=== PATIENT | female | born 1980 | race African-American/Black ===

== ENCOUNTER 2023-04-22 22:32 | Emergency (ER) | payer OTHER ==
[~2023-04-22] VITALS: Ht 165.1 cm; Wt 250.0 kg
[2023-04-22 22:40] VITALS: BP 143/85; PULSE 114; RESP 18; TEMP 98.4; O2SAT 97
[2023-04-22] MEDS ORDERED: ACETAMINOPHEN 325MG TABLET PO NR (23:00)
[2023-04-22] MEDS ORDERED: GABAPENTIN 100MG CAPSULE PO NR (23:00)
[2023-04-22 23:21] LABS: BASOPHILS % 0.7 % (0.0-2.0); DIFFERENTIAL COMMENT 0; EOSINOPHILS % 1.8 % (0.0-5.0); HEMATOCRIT. 43.2 % (36.0-48.0); HEMOGLOBIN. 12.1 g/dL (12.0-16.0); LYMPHOCYTES % 11.9 % (20.0-50.0); MEAN CORPUSCULAR HEMOGLOBIN 24.1 pg (28.0-32.0); MEAN CORPUSCULAR HGB CONC 28.1 g/dL (31.0-37.0); MEAN CORPUSCULAR VOLUME 85.7 fL (81.0-99.0); MEAN PLATELET VOLUME 8.9 fl (7.4-10.4); MONOCYTES % 8.9 % (2.0-8.0); NEUTROPHILS % 76.7 % (40.0-76.0); PLATELET 220 x1000/uL (130-400); RED BLOOD CELL COUNT 5.04 mill/uL (4.2-5.4); RED CELL DISTRIBUTION WIDTH 19.6 % (11.6-14.6); WHITE BLOOD COUNT 8.2 x1000/uL (4.5-11.0)
[2023-04-22 23:34] LABS: CARBON DIOXIDE 40 mEq/L (21-32); CHLORIDE 97 mEq/L (98-107); GLUCOSE 101 mg/dL (70-105); PHOSPHORUS 4.3 mg/dL (2.5-4.9); POTASSIUM 4.3 mEq/L (3.5-5.1); SODIUM 139 mEq/L (136-145); UREA NITROGEN BLOOD 13 mg/dL (9-23)
[2023-04-23] MEDS ORDERED: ACET-2708 MT (00:09)
[2023-04-23] MEDS ORDERED: GABA-529 MT (00:09)
== END 2023-04-23 00:26 | disposition home or self-care (01) ==
LOC: ER 22:32
DX: G62.9 Polyneuropathy, unspecified (principal); I11.0 Hypertensive heart disease with heart failure; I50.9 Heart failure, unspecified; E11.9 Type 2 diabetes mellitus without complications
CPT/HCPCS: 36415; 80048; 83735; 84100; 85025; 99283

== ENCOUNTER 2023-04-26 15:15 | Inpatient (IN) | payer OTHER ==
[~2023-04-26] VITALS: Ht 162.6 cm; Wt 168.3 kg
[~2023-04-26 15:15] MED LIST: ACET-2708 MT; GABA-529 MT
[2023-04-26] MEDS: IPRATROPIUM BROMIDE (0.02%) 0.5MG/2.5ML NEB HHN STA ×2 (15:24→18:48)
[2023-04-26] MEDS: ALBUTEROL (0.083%) 2.5MG/3ML NEB HHN STA (15:24)
[2023-04-26] MEDS: METHYLPREDNISOLONE SOD SUCC 125MG/2ML (ACT-O-VIAL) IV STA (15:24)
[2023-04-26 18:06] LABS: ALANINE AMINOTRANSFERASE < 7 IU/L (10-49); ALBUMIN 3.8 g/dL (3.2-4.8); ASPARTATE AMINOTRANSFERASE 17 IU/L (<34); BILIRUBIN TOTAL 0.6 mg/dL (0.1-1.0); CALCIUM 8.7 mg/dL (8.7-10.4); CARBON DIOXIDE 36 mEq/L (21-32); CHLORIDE 98 mEq/L (98-107); CREATININE 0.8 mg/dL (0.6-1.0); GLUCOSE 85 mg/dL (70-105); POTASSIUM 4.8 mEq/L (3.5-5.1); PROTEIN TOTAL 8.1 g/dL (6.0-8.3); SODIUM 139 mEq/L (136-145); TROPONIN I HIGH SENSITIVITY 13 ng/L (3.0-34); UREA NITROGEN BLOOD 10 mg/dL (9-23)
[2023-04-26 19:21] LABS: BASOPHILS % 0.6 % (0.0-2.0); DIFFERENTIAL COMMENT 0; HEMATOCRIT. 41.6 % (36.0-48.0); HEMOGLOBIN. 11.9 g/dL (12.0-16.0); LYMPHOCYTES % 8.2 % (20.0-50.0); MEAN CORPUSCULAR HEMOGLOBIN 23.9 pg (28.0-32.0); MEAN CORPUSCULAR HGB CONC 28.5 g/dL (31.0-37.0); MEAN CORPUSCULAR VOLUME 83.9 fL (81.0-99.0); MEAN PLATELET VOLUME 8.9 fl (7.4-10.4); MONOCYTES % 4.9 % (2.0-8.0); NEUTROPHILS % 84.3 % (40.0-76.0); PLATELET 225 x1000/uL (130-400); RED BLOOD CELL COUNT 4.96 mill/uL (4.2-5.4); RED CELL DISTRIBUTION WIDTH 20.4 % (11.6-14.6); WHITE BLOOD COUNT 10.3 x1000/uL (4.5-11.0)
[2023-04-26 19:33] LABS: TROPONIN I HIGH SENSITIVITY 13 ng/L (3.0-34)
[2023-04-26 19:48] LABS: INR 1.1; PROTHROMBIN TIME 11.7 sec (9.6-11.0)
[2023-04-26 22:22] LABS: BG CARBOXYHEMOGLOBIN 2.1 % (0.5-1.5); BG DEOXYHEMOGLOBIN 5.9 % (0.0-5.0); BG FRACTION INSPIRED OXYGEN 100; BG METHEMOGLOBIN 0.4 % (0.0-1.5); BG OXYGEN SATURATION 93.9 % (92.0-98.5); BG OXYHEMOGLOBIN 91.6 % (94.0-97.0); BG PCO2 141.9 mmHg (35.0-45.0); BG PH 7.109 (7.350-7.450); BG PO2 91.4 mmHg (75.0-100.0); BG SAMPLE SITE RIGHT RADIAL; BG TOTAL HEMOGLOBIN 13.8 g/dL (12.0-18.0); BG VENT MODE MASK - NRB
[2023-04-26 22:30] VITALS: RESP 29
[2023-04-26 23:50] VITALS: PULSE 104; RESP 22
[2023-04-27] VITALS (31 sets, daily range): BP systolic 118–177; BP diastolic 69–145; PULSE 78–101; RESP 14–35; TEMP 98.4–98.5
[2023-04-27] MEDS: PROPOFOL 10MG/ML 100ML 100 ML IV ONE
[2023-04-27] MEDS ORDERED: MIDAZOLAM HCL 100 MG in DEXT 5% WATER 80 ML IV ONE
[2023-04-27] MEDS: SUCCINYLCHOLINE CHLORIDE 200MG/10ML IV ONE
[2023-04-27] MEDS ORDERED: ACETAMINOPHEN 650MG/20.3ML UDC GT PRN (00:45)
[2023-04-27] MEDS ORDERED: ONDANSETRON HCL 4MG/2ML INJ IV PRN (00:45)
[2023-04-27] MEDS: MIDAZOLAM 100MG/100ML PREMIX IV PRN (01:07)
[2023-04-27 01:20] LABS: BG CARBOXYHEMOGLOBIN 1.2 % (0.5-1.5); BG FRACTION INSPIRED OXYGEN 100; BG HCO3 ACT 41.2 mmol/L (22.0-26.0); BG METHEMOGLOBIN 0.5 % (0.0-1.5); BG OXYHEMOGLOBIN 98.3 % (94.0-97.0); BG PCO2 71.6 mmHg (35.0-45.0); BG PH 7.378 (7.350-7.450); BG PO2 317.5 mmHg (75.0-100.0); BG SAMPLE SITE RIGHT RADIAL; BG TOTAL HEMOGLOBIN 12.7 g/dL (12.0-18.0); BG TOTAL RESPIRATORY RATE 22 b/min; BG VENT MODE VENT - AC
[2023-04-27 01:32] LABS: IRON 40 ug/dL (50-170); PHOSPHORUS 5.4 mg/dL (2.5-4.9); TOTAL IRON BINDING CAPACITY 316 ug/dl (250-425)
[2023-04-27] MEDS: PROPOFOL 10MG/ML 100ML 100 ML IV PRN ×2 (02:06→20:18)
[2023-04-27] MEDS: PANTOPRAZOLE SODIUM 40 MG/VIAL IV SCH (03:18)
[2023-04-27] MEDS: METHYLPREDNISOLONE SOD SUCC 40MG/ML (ACT-O-VIAL) IV SCH (03:18)
[2023-04-27 03:30] LABS: CLARITY URINE CLEAR (CLEAR); COLOR URINE YELLOW (YELLOW); GLUCOSE URINE 3+ (NEGATIVE); KETONES URINE 1+ (NEGATIVE); LEUKOCYTE ESTERASE URINE NEGATIVE (NEGATIVE); NITRITE URINE NEGATIVE (NEGATIVE); OCCULT BLOOD URINE 2+ (NEGATIVE); PROTEIN URINE 2+ (NEGATIVE); SPECIFIC GRAVITY URINE 1.023 (1.005-1.030)
[2023-04-27 04:23] LABS: BG BASE EXCESS 12.4 mmol/L (-2.0-2.0); BG CARBOXYHEMOGLOBIN 0.9 % (0.5-1.5); BG DEOXYHEMOGLOBIN 1.6 % (0.0-5.0); BG FRACTION INSPIRED OXYGEN 60; BG HCO3 ACT 35.6 mmol/L (22.0-26.0); BG METHEMOGLOBIN 0.7 % (0.0-1.5); BG OXYGEN SATURATION 98.4 % (92.0-98.5); BG OXYHEMOGLOBIN 96.8 % (94.0-97.0); BG PCO2 39.9 mmHg (35.0-45.0); BG PH 7.568 (7.350-7.450); BG PO2 93.4 mmHg (75.0-100.0); BG SAMPLE SITE LEFT RADIAL; BG TOTAL HEMOGLOBIN 12.9 g/dL (12.0-18.0); BG TOTAL RESPIRATORY RATE 26 b/min; BG VENT MODE VENT - AC
[2023-04-27 04:41] LABS: CREATINE KINASE 70 IU/L (34-145); CREATINE KINASE MB FRACTION 1.7 ng/mL (0.5-3.6); PHOSPHORUS 3.7 mg/dL (2.5-4.9); TRIGLYCERIDE 56 mg/dL (0-150); TROPONIN I HIGH SENSITIVITY 14 ng/L (3.0-34)
[2023-04-27 05:38] LABS: SQUAMOUS EPITHELIAL CELL URINE FEW /lpf (RARE/1+)
[2023-04-27 05:40] LABS: WBC URINE 0-2 /hpf (0-2)
[2023-04-27 05:41] LABS: BACTERIA URINE NONE SEEN
[2023-04-27 05:42] LABS: FINE GRANULAR CASTS URINE 0-5 /lpf
[2023-04-27] MEDS: IPRATROPIUM/ALBUTEROL 0.5-3(2.5)MG/3ML NEB HHN SCH (08:21)
[2023-04-27] MEDS: HYDRALAZINE 20MG/ML VIAL IV PRN (08:37)
[2023-04-27] MEDS: AMLODIPINE 5MG TABLET PO SCH (09:55)
[2023-04-27] MEDS: ENOXAPARIN 40MG/0.4ML SYR SUBCUT SCH (09:55)
[2023-04-27 10:29] LABS: ALANINE AMINOTRANSFERASE < 7 IU/L (10-49); ALBUMIN 3.8 g/dL (3.2-4.8); ASPARTATE AMINOTRANSFERASE 19 IU/L (<34); BILIRUBIN TOTAL 1.3 mg/dL (0.1-1.0); CALCIUM 9.2 mg/dL (8.7-10.4); CARBON DIOXIDE 35 mEq/L (21-32); CHLORIDE 96 mEq/L (98-107); CREATININE 0.9 mg/dL (0.6-1.0); GLUCOSE 79 mg/dL (70-105); POTASSIUM 4.9 mEq/L (3.5-5.1); PROTEIN TOTAL 7.8 g/dL (6.0-8.3); SODIUM 138 mEq/L (136-145); UREA NITROGEN BLOOD 12 mg/dL (9-23)
[2023-04-27 11:16] LABS: CALCIUM 8.7 mg/dL (8.7-10.4); CARBON DIOXIDE 35 mEq/L (21-32); CHLORIDE 99 mEq/L (98-107); CREATININE 0.9 mg/dL (0.6-1.0); GLUCOSE 91 mg/dL (70-105); POTASSIUM 4.2 mEq/L (3.5-5.1); SODIUM 140 mEq/L (136-145); UREA NITROGEN BLOOD 12 mg/dL (9-23)
[2023-04-27] MEDS: ALBUTEROL (0.083%) 2.5MG/3ML NEB HHN STA (11:54)
[2023-04-27 16:05] LABS: CREATINE KINASE MB FRACTION 1.3 ng/mL (0.5-3.6)
[2023-04-27] MEDS ORDERED: DEXTROSE 50% WATER 50ML SYRINGE IV ONE (16:25)
[2023-04-27] MEDS: DEXTROSE 50% WATER 50ML SYRINGE IV NR (16:32)
[2023-04-27] MEDS: LOSARTAN 50 MG TABLET PO SCH (19:15)
[2023-04-27] MEDS ORDERED: CLONIDINE 0.1MG TABLET PO PRN (19:15)
[2023-04-27] MEDS ORDERED: CEFTRIAXONE 2GM/50ML (ADDEASE) 50 ML IV SCH (19:30)
[2023-04-27] MEDS: HYDROCHLOROTHIAZIDE 25MG TABLET PO SCH (19:30)
[2023-04-27] MEDS ORDERED: FENTANYL CITRATE 2,500 MCG in SODIUM CHLORIDE 0.9% 200 ML IV PRN (20:00)
[2023-04-27] MEDS ORDERED: PROPOFOL 10MG/ML 100ML 100 ML IV SCH (20:00)
[2023-04-27] MEDS ORDERED: FENTANYL 2500MCG/250ML PMX 250 ML IV ONE (20:00)
[2023-04-27] MEDS: FUROSEMIDE 40MG/4ML VIAL IVP SCH (21:00)
[2023-04-27] MEDS ORDERED: AZITHROMYCIN 500MG/250ML 250 ML IV SCH (21:00)
[2023-04-27] MEDS: SPIRONOLACTONE 25MG TABLET PO SCH (23:51)
[2023-04-27 23:55] LABS: CREATINE KINASE 64 IU/L (34-145); CREATINE KINASE MB FRACTION 1.3 ng/mL (0.5-3.6); TROPONIN I HIGH SENSITIVITY 22 ng/L (3.0-34)
[2023-04-27] MEDS: CEFTRIAXONE 2GM/50ML (ADDEASE) 50 ML IV SCH (23:57)
[2023-04-27] MEDS: AZITHROMYCIN 500MG/250ML 250 ML IV SCH (23:58)
[2023-04-28] VITALS (88 sets, daily range): BP systolic 74–150; BP diastolic 34–124; PULSE 85–108; RESP 11–27; TEMP 97.8–98.5
[2023-04-28] MEDS: DEXTROSE 50% WATER 50ML SYRINGE IV PRN (01:12)
[2023-04-28] MEDS ORDERED: DEXTROSE 50% WATER 50ML SYRINGE IV PRN ×2 (01:15→21:45)
[2023-04-28] MEDS ORDERED: DEXT 5%/0.45% NACL 500ML 500 ML IV ONE (01:45)
[2023-04-28] MEDS: DEXT 5%/0.45% NACL 1000ML 1,000 ML IV SCH (02:30)
[2023-04-28] MEDS: BLOOD SUGAR DIAGNOSTIC STRIP TEST SCH (04:00)
[2023-04-28 05:15] LABS: HEMATOCRIT. 37.6 % (36.0-48.0); HEMOGLOBIN. 11.3 g/dL (12.0-16.0); MEAN CORPUSCULAR HGB CONC 30.1 g/dL (31.0-37.0); MEAN CORPUSCULAR VOLUME 79.5 fL (81.0-99.0); RED BLOOD CELL COUNT 4.73 mill/uL (4.2-5.4); RED CELL DISTRIBUTION WIDTH 19.7 % (11.6-14.6)
[2023-04-28 05:29] LABS: ALANINE AMINOTRANSFERASE 10 IU/L (10-49); ASPARTATE AMINOTRANSFERASE 75 IU/L (<34); BILIRUBIN TOTAL 0.7 mg/dL (0.1-1.0); CALCIUM 8.6 mg/dL (8.7-10.4); CARBON DIOXIDE 34 mEq/L (21-32); CHLORIDE 98 mEq/L (98-107); CHOLESTEROL 94 mg/dL (<200); CREATININE 0.8 mg/dL (0.6-1.0); GLUCOSE 114 mg/dL (70-105); HDL CHOLESTEROL 38 mg/dL (>65); LDL CHOLESTEROL 42 mg/dL (5-100); POTASSIUM 4.2 mEq/L (3.5-5.1); PROTEIN TOTAL 6.3 g/dL (6.0-8.3); SODIUM 139 mEq/L (136-145); T4 FREE 1.12 ng/dL (0.89-1.76); THYROID STIMULATING HORMONE 2.55 uIU/mL (0.55-4.78); TRIGLYCERIDE 85 mg/dL (0-150); UREA NITROGEN BLOOD 14 mg/dL (9-23)
[2023-04-28] MEDS ORDERED: LIDOCAINE HCL 1% 10 MG/ML 10ML VIAL ONE (09:06)
[2023-04-28 10:00] LABS: BG BASE EXCESS 8.8 mmol/L (-2.0-2.0); BG CARBOXYHEMOGLOBIN 0.7 % (0.5-1.5); BG DEOXYHEMOGLOBIN 5.4 % (0.0-5.0); BG FRACTION INSPIRED OXYGEN 50; BG HCO3 ACT 30.4 mmol/L (22.0-26.0); BG METHEMOGLOBIN 0.4 % (0.0-1.5); BG OXYGEN SATURATION 94.5 % (92.0-98.5); BG OXYHEMOGLOBIN 93.5 % (94.0-97.0); BG PCO2 31.9 mmHg (35.0-45.0); BG PH 7.597 (7.350-7.450); BG PO2 69.4 mmHg (75.0-100.0); BG SAMPLE SITE LEFT RADIAL; BG TOTAL HEMOGLOBIN 12.6 g/dL (12.0-18.0); BG VENT MODE VENT - AC
[2023-04-28 10:34] LABS: ANISOCYTOSIS 1+; MEAN PLATELET VOLUME 9.3 fl (7.4-10.4); MICROCYTOSIS 1+; PLATELET 196 x1000/uL (130-400); PLATELET ESTIMATE NORMAL
[2023-04-28] MEDS ORDERED: CEFTRIAXONE 2GM/50ML (ADDEASE) 50 ML IV SCH (20:00)
[2023-04-28] MEDS: AZITHROMYCIN 500MG/250ML 250 ML IV SCH (21:43)
[2023-04-28] MEDS ORDERED: PROPOFOL 10MG/ML 100ML 100 ML IV PRN (22:00)
[2023-04-29] VITALS (73 sets, daily range): BP systolic 90–141; BP diastolic 57–97; PULSE 78–103; RESP 0–27; TEMP 98.3–99.5
[2023-04-29 05:49] LABS: CALCIUM 8.3 mg/dL (8.7-10.4); CARBON DIOXIDE 33 mEq/L (21-32); CHLORIDE 97 mEq/L (98-107); CREATININE 0.9 mg/dL (0.6-1.0); GLUCOSE 118 mg/dL (70-105); POTASSIUM 4.2 mEq/L (3.5-5.1); SODIUM 138 mEq/L (136-145); TRIGLYCERIDE 73 mg/dL (0-150); UREA NITROGEN BLOOD 15 mg/dL (9-23)
[2023-04-29] MEDS: INSULIN LISPRO 100 UNITS/ML SUBCUT SCH (06:50)
[2023-04-29] MEDS: IPRATROPIUM/ALBUTEROL 0.5-3(2.5)MG/3ML NEB HHN SCH (08:57)
[2023-04-29 09:12] LABS: BG BASE EXCESS 11.8 mmol/L (-2.0-2.0); BG CARBOXYHEMOGLOBIN 0.5 % (0.5-1.5); BG DEOXYHEMOGLOBIN 4.9 % (0.0-5.0); BG FRACTION INSPIRED OXYGEN 60; BG HCO3 ACT 36.5 mmol/L (22.0-26.0); BG METHEMOGLOBIN 0.3 % (0.0-1.5); BG OXYGEN SATURATION 95.1 % (92.0-98.5); BG OXYHEMOGLOBIN 94.3 % (94.0-97.0); BG PCO2 47.6 mmHg (35.0-45.0); BG PH 7.502 (7.350-7.450); BG PO2 78.4 mmHg (75.0-100.0); BG SAMPLE SITE RIGHT RADIAL; BG TOTAL HEMOGLOBIN 12.2 g/dL (12.0-18.0); BG VENT MODE VENT - AC
[2023-04-29 09:40] LABS: HEMATOCRIT 38.5 % (36.0-48.0); HEMOGLOBIN 11.1 g/dL (12.0-16.0); MEAN CORPUSCULAR HEMOGLOBIN 23.2 pg (28.0-32.0); MEAN CORPUSCULAR HGB CONC 28.7 g/dL (31.0-37.0); MEAN CORPUSCULAR VOLUME 80.9 fL (81.0-99.0); PLATELET 218 x1000/uL (130-400); RED BLOOD CELL COUNT 4.77 mill/uL (4.2-5.4); RED CELL DISTRIBUTION WIDTH 20.2 % (11.6-14.6)
[2023-04-29 09:42] LABS: WHITE BLOOD COUNT 13.4 x1000/uL (4.5-11.0)
[2023-04-30] VITALS (58 sets, daily range): BP systolic 105–139; BP diastolic 59–104; PULSE 68–108; RESP 0–25; TEMP 98.1–99.2; O2SAT 93
[2023-04-30] MEDS: PROPOFOL 10MG/ML 100ML 100 ML IV SCH (00:58)
[2023-04-30 05:41] LABS: HEMOGLOBIN 10.4 g/dL (12.0-16.0); MEAN CORPUSCULAR HEMOGLOBIN 23.8 pg (28.0-32.0); MEAN CORPUSCULAR HGB CONC 29.8 g/dL (31.0-37.0); MEAN CORPUSCULAR VOLUME 79.8 fL (81.0-99.0); PLATELET 184 x1000/uL (130-400); RED BLOOD CELL COUNT 4.39 mill/uL (4.2-5.4); RED CELL DISTRIBUTION WIDTH 19.2 % (11.6-14.6); WHITE BLOOD COUNT 10.6 x1000/uL (4.5-11.0)
[2023-04-30 05:51] LABS: CALCIUM 8.1 mg/dL (8.7-10.4); CARBON DIOXIDE 36 mEq/L (21-32); CHLORIDE 99 mEq/L (98-107); CREATININE 0.8 mg/dL (0.6-1.0); GLUCOSE 123 mg/dL (70-105); POTASSIUM 3.2 mEq/L (3.5-5.1); SODIUM 137 mEq/L (136-145); UREA NITROGEN BLOOD 22 mg/dL (9-23)
[2023-04-30 08:25] LABS: BG BASE EXCESS 9.5 mmol/L (-2.0-2.0); BG CARBOXYHEMOGLOBIN 0.7 % (0.5-1.5); BG DEOXYHEMOGLOBIN 5.4 % (0.0-5.0); BG FRACTION INSPIRED OXYGEN 45; BG HCO3 ACT 33.8 mmol/L (22.0-26.0); BG METHEMOGLOBIN 0.3 % (0.0-1.5); BG OXYGEN SATURATION 94.5 % (92.0-98.5); BG OXYHEMOGLOBIN 93.6 % (94.0-97.0); BG PCO2 44.6 mmHg (35.0-45.0); BG PH 7.498 (7.350-7.450); BG PO2 74.7 mmHg (75.0-100.0); BG SAMPLE SITE RIGHT RADIAL; BG TOTAL HEMOGLOBIN 12.3 g/dL (12.0-18.0); BG VENT MODE VENT - PRVC
[2023-04-30] MEDS: AMLODIPINE 10MG TABLET PO SCH (10:26)
[2023-04-30] MEDS: KCL 20MEQ/100ML PREMIX 100 ML IV NR (14:22)
[2023-04-30 14:51] LABS: BG BASE EXCESS 8.5 mmol/L (-2.0-2.0); BG DEOXYHEMOGLOBIN 4.5 % (0.0-5.0); BG FRACTION INSPIRED OXYGEN 40; BG HCO3 ACT 35.2 mmol/L (22.0-26.0); BG METHEMOGLOBIN 0.2 % (0.0-1.5); BG OXYGEN SATURATION 95.4 % (92.0-98.5); BG OXYHEMOGLOBIN 94.3 % (94.0-97.0); BG PCO2 58.5 mmHg (35.0-45.0); BG PH 7.397 (7.350-7.450); BG PO2 86.2 mmHg (75.0-100.0); BG SAMPLE SITE RIGHT RADIAL; BG TOTAL HEMOGLOBIN 12.8 g/dL (12.0-18.0); BG TOTAL RESPIRATORY RATE 13 b/min; BG VENT MODE VENT - CPAP/PS
[2023-05-01] VITALS (29 sets, daily range): BP systolic 109–131; BP diastolic 72–89; PULSE 75–103; RESP 13–33; TEMP 97.8–99.3; O2SAT 93–95
[2023-05-01 05:42] LABS: HEMATOCRIT. 37.2 % (36.0-48.0); HEMOGLOBIN. 10.9 g/dL (12.0-16.0); MEAN CORPUSCULAR HEMOGLOBIN 24.1 pg (28.0-32.0); MEAN CORPUSCULAR HGB CONC 29.3 g/dL (31.0-37.0); MEAN CORPUSCULAR VOLUME 82.3 fL (81.0-99.0); MEAN PLATELET VOLUME 8.7 fl (7.4-10.4); PLATELET 181 x1000/uL (130-400); RED BLOOD CELL COUNT 4.52 mill/uL (4.2-5.4); RED CELL DISTRIBUTION WIDTH 19.8 % (11.6-14.6); WHITE BLOOD COUNT 12.6 x1000/uL (4.5-11.0)
[2023-05-01 05:54] LABS: CALCIUM 8.5 mg/dL (8.7-10.4); CARBON DIOXIDE 39 mEq/L (21-32); CHLORIDE 97 mEq/L (98-107); CREATININE 0.8 mg/dL (0.6-1.0); GLUCOSE 116 mg/dL (70-105); POTASSIUM 3.8 mEq/L (3.5-5.1); SODIUM 139 mEq/L (136-145); TRIGLYCERIDE 92 mg/dL (0-150); UREA NITROGEN BLOOD 23 mg/dL (9-23)
[2023-05-01 06:13] LABS: DIFFERENTIAL COMMENT 1
[2023-05-01] MEDS ORDERED: THROAT LOZENGES-BENZOCAINE/MENTH/CETYLPYRD CL LOZENGES MM PRN (09:30)
[2023-05-01 10:53] LABS: BG BASE EXCESS 8.7 mmol/L (-2.0-2.0); BG CARBOXYHEMOGLOBIN 1.8 % (0.5-1.5); BG DEOXYHEMOGLOBIN 5.2 % (0.0-5.0); BG FRACTION INSPIRED OXYGEN 32; BG HCO3 ACT 39.4 mmol/L (22.0-26.0); BG METHEMOGLOBIN 0.5 % (0.0-1.5); BG OXYGEN SATURATION 94.7 % (92.0-98.5); BG OXYHEMOGLOBIN 92.5 % (94.0-97.0); BG PCO2 90.3 mmHg (35.0-45.0); BG PH 7.258 (7.350-7.450); BG PO2 84.7 mmHg (75.0-100.0); BG SAMPLE SITE RIGHT RADIAL; BG TOTAL HEMOGLOBIN 13.6 g/dL (12.0-18.0); BG VENT MODE NASAL CANNULA
[2023-05-01 14:22] LABS: BG BASE EXCESS 11.6 mmol/L (-2.0-2.0); BG CARBOXYHEMOGLOBIN 2.2 % (0.5-1.5); BG DEOXYHEMOGLOBIN 6.3 % (0.0-5.0); BG FRACTION INSPIRED OXYGEN 28; BG HCO3 ACT 38.9 mmol/L (22.0-26.0); BG METHEMOGLOBIN 0.2 % (0.0-1.5); BG OXYGEN SATURATION 93.5 % (92.0-98.5); BG OXYHEMOGLOBIN 91.3 % (94.0-97.0); BG PCO2 65.2 mmHg (35.0-45.0); BG PH 7.394 (7.350-7.450); BG PO2 70.9 mmHg (75.0-100.0); BG SAMPLE SITE RIGHT RADIAL; BG TOTAL HEMOGLOBIN 12.4 g/dL (12.0-18.0); BG VENT MODE MASK - BIPAP
[2023-05-01 15:37] LABS: ANISOCYTOSIS 2+; HYPOCHROMASIA 1+; PLATELET ESTIMATE NORMAL
== END 2023-05-01 19:10 | disposition short-term general hospital (02) | DRG 208 ==
LOC: ER 15:15 → EDBEDREQSVC 20:32 → EDBEDREQTM 20:32 → EDBEDREQ 20:34 → EDBEDREQSVC 04-27 01:56 → EDBEDREQTM 04-27 01:56 → EDBEDREQ 04-27 02:03 → MICUSO 04-27 19:49 → 5EST 05-01 16:10
PROVIDERS: ADMIT Internal Medicine; ATTEND Internal Medicine
PROC: 5A09357 Assistance with Respiratory Ventilation, Less than 24 Consecutive Hours, Continuous Positive Airway Pressure (ICD-10-PCS; 2023-04-26)
PROC: 0BH17EZ Insertion of Endotracheal Airway into Trachea, Via Natural or Artificial Opening (ICD-10-PCS; principal; 2023-04-27)
PROC: 5A1945Z Respiratory Ventilation, 24-96 Consecutive Hours (ICD-10-PCS; 2023-04-27)
PROC: 05HY33Z Insertion of Infusion Device into Upper Vein, Percutaneous Approach (ICD-10-PCS; 2023-04-28)
PROC: B54MZZA Ultrasonography of Right Upper Extremity Veins, Guidance (ICD-10-PCS; 2023-04-28)
PROC: 5A09357 Assistance with Respiratory Ventilation, Less than 24 Consecutive Hours, Continuous Positive Airway Pressure (ICD-10-PCS; 2023-05-01)
DX: J96.02 Acute respiratory failure with hypercapnia (principal); G92.8 Other toxic encephalopathy; Z68.44 Body mass index [BMI] 60.0-69.9, adult; I50.30 Unspecified diastolic (congestive) heart failure; E66.2 Morbid (severe) obesity with alveolar hypoventilation; J44.1 Chronic obstructive pulmonary disease with (acute) exacerbation; J45.901 Unspecified asthma with (acute) exacerbation; E87.4 Mixed disorder of acid-base balance; J96.01 Acute respiratory failure with hypoxia; D50.9 Iron deficiency anemia, unspecified; I11.0 Hypertensive heart disease with heart failure; I87.2 Venous insufficiency (chronic) (peripheral); E11.9 Type 2 diabetes mellitus without complications; Z20.822 Contact with and (suspected) exposure to COVID-19
CPT/HCPCS: 31500; 36415; 36573; 36600; 71045; 80048; 80053; 80061; 81003; 82375; 82550; 82553; 82728; 82805; 82962; 83036; 83540; 83550; 83605; 83735; 83880; 84100; 84145; 84439; 84443; 84478; 84484; 85025; 85027; 85379; 87426; 93005; 93306; 93970; 94002; 94003; 94640; 94660; 99285; A6261; C1725; C9113; J0360; J0456; J0696; J1650; J1940; J2250; J2704; J2920; J2930; J3480; J3490; J7060